=== PATIENT | male | born 1940 | race Caucasian/White ===

== ENCOUNTER 2017-02-21 13:43 | Emergency (ER) | payer MEDICARE, OTHER ==
[2017-02-21] MEDS ORDERED: PERC5TAB6 PO (15:14)
[2017-02-21] MEDS ORDERED: PERCOCET 5MG/325MG TAB PO ONE (15:15)
[2017-02-21] MEDS ORDERED: ALLO10TA PO (15:25)
[2017-02-21] MEDS ORDERED: AMIO0.1T PO (15:25)
[2017-02-21] MEDS ORDERED: FURO40TA2 PO (15:25)
[2017-02-21] MEDS ORDERED: LISI-538 PO (15:25)
[2017-02-21] MEDS ORDERED: DRIS50002 PO (15:25)
[2017-02-21] MEDS ORDERED: KLOR20PO12 GT (15:25)
[2017-02-21] MEDS ORDERED: COUM1TAB17 PO (15:25)
[2017-02-21] MEDS ORDERED: FOLI800C PO (15:25)
[2017-02-21] MEDS ORDERED: ASPI1TAB PO (15:25)
[2017-02-21] MEDS ORDERED: CARV12.5 PO (15:25)
[2017-02-21] MEDS ORDERED: VITA100T20 PO (15:25)
[2017-02-21] MEDS ORDERED: FLOM5CAP PO (15:25)
--- NOTE | 2017-02-21 16:34 | REP ---
PELVIC AND LEFT HIP: AP view of the pelvis is performed. 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 There appears to be a nondisplaced fracture of the proximal femur lateral aspect below the greater trochanter. No other acute fracture or dislocation is seen. There are mild degenerative changes of the right hip. There are degenerative changes of the lower lumbar spine. IMPRESSION: Left hip prosthesis. Suspect nondisplaced fracture proximal femur laterally just below the greater trochanter. Signed by David Oneill MD 02/22/2017 07:40 P
[2017-02-21] MEDS ORDERED: CYCL10TA PO (16:49)
[2017-02-21 16:52] VITALS: BP 137/92
[2017-02-21] MEDS ORDERED: diazePAM 5 MG TAB PO ONE (17:00)
== END 2017-02-21 17:14 | disposition home or self-care (01) ==
LOC: M ED 14:33
DX: S72.25XA Nondisplaced subtrochanteric fracture of left femur, initial encounter for closed fracture (principal); W01.0XXA Fall on same level from slipping, tripping and stumbling without subsequent striking against object, initial encounter; Y92.009 Unspecified place in unspecified non-institutional (private) residence as the place of occurrence of the external cause; Y93.89 Activity, other specified; Y99.8 Other external cause status; Z96.642 Presence of left artificial hip joint; I10 Essential (primary) hypertension; Z95.0 Presence of cardiac pacemaker; Z95.5 Presence of coronary angioplasty implant and graft; M19.90 Unspecified osteoarthritis, unspecified site; G62.9 Polyneuropathy, unspecified; Z79.899 Other long term (current) drug therapy; Z79.01 Long term (current) use of anticoagulants; Z79.82 Long term (current) use of aspirin; Z88.8 Allergy status to other drugs, medicaments and biological substances